=== PATIENT | female | born 1950 | race Two or more races ===

== ENCOUNTER 2018-10-21 17:35 | Emergency (ER) | payer SELFPAY ==
[~2018-10-21] VITALS: Ht 154.9 cm; Wt 56.2 kg
[2018-10-21 18:11] VITALS: BP 150/90
[2018-10-21 19:00] LABS: BASOPHILS % (AUTO) 0.8 % (0-1); EOSINOPHILS % (AUTO) 0.7 % (0-6); HEMATOCRIT 40.5 % (35.0-45.0); HEMOGLOBIN 13.5 g/dl (12.0-16.0); LYMPHOCYTES # (AUTO) 1.5 X10'3 (1.1-4.8); LYMPHOCYTES % (AUTO) 32.9 % (21-51); MEAN CORPUSCULAR HGB CONC 33.4 g/dL (33.0-36.5); MEAN CORPUSCULAR VOLUME 92.8 FL (78-98); MEAN PLATELET VOLUME 7.2 FL (7.4-10.4); MONOCYTES # (AUTO) 0.5 X10'3 (0-0.9); MONOCYTES % (AUTO) 10.6 % (2-12); NEUTROPHILS # (AUTO) 2.5 X10'3 (1.8-7.7); PLATELET COUNT 255 X10'3 (140-440); RED BLOOD COUNT 4.36 X10'6 (4.20-5.60); RED CELL DISTRIBUTION WIDTH 13.4 % (11.5-14.5); WHITE BLOOD COUNT 4.6 X10'3 (4.5-11.0)
[2018-10-21 19:15] LABS: ALANINE AMINOTRANSFERASE 24 U/L (12-78); ALBUMIN 4.2 G/DL (3.4-5.0); ALBUMIN/GLOBULIN RATIO 1.3 (1.1-1.5); ALKALINE PHOSPHATASE 82 IU/L (46-116); ANION GAP 8 (8-16); ASPARTATE AMINO TRANSFERASE 22 U/L (10-37); BILIRUBIN,TOTAL 0.4 MG/DL (0.1-1.0); BLOOD UREA NITROGEN 13 MG/DL (7-18); BUN/CREATININE RATIO 17.8 (6.6-38.0); CHLORIDE 99 MMOL/L (99-107); CREATININE 0.73 MG/DL (0.40-0.90); GLUCOSE 98 MG/DL (70-104); POTASSIUM 3.9 MMOL/L (3.5-5.1); SODIUM 137 MMOL/L (135-145); TOTAL CARBON DIOXIDE 30.3 MMOL/L (24-32); TOTAL PROTEIN 7.4 G/DL (6.4-8.2); eGFR 80 ML/MIN
[2018-10-21 20:14] LABS: CLARITY,URINE CLEAR (Clear); COLOR,URINE YELLOW (Yellow); GLUCOSE, URINE NEGATIVE (Neg); KETONES,URINE NEGATIVE (Neg); LEUKOCYTE ESTERASE ,URINE SMALL (Neg); NITRITES, URINE NEGATIVE (Neg); OCCULT BLOOD,URINE NEGATIVE (Neg); PROTEIN,URINE NEGATIVE (Neg); UROBILINOGEN,URINE 0.2 E.U/dL (0.2-1.0)
[2018-10-21 20:15] LABS: UA COLLECTION TYPE CLN CATCH MIDSTREAM
[2018-10-21 20:32] LABS: BACTERIA,URINE FEW /HPF (Neg); MUCUS STRANDS NONE SEEN /LPF (Neg); RBC,URINE 0-2 /HPF (0-2); SQUAMOUS EPITHELIAL CELL,UR FEW /LPF (FEW); WBC,URINE 0-4 /HPF (0-4)
[2018-10-21] MEDS ORDERED: bisacodyl 5mg tablet.DR PO ONE (20:50)
[2018-10-21] MEDS ORDERED: dicyclomine 10 MG capsule PO ONE (20:55)
[2018-10-21] MEDS ORDERED: acetaminophen 325mg tablet PO ONE (20:55)
[2018-10-21] MEDS ORDERED: MAGN296S50 PO (21:57)
[2018-10-21] MEDS ORDERED: POLY119P2 PO (21:57)
[2018-10-21] MEDS ORDERED: GOLYS PO (21:57)
[2018-10-21] MEDS ORDERED: BISA-155 PO (21:57)
--- NOTE | 2018-10-21 22:17 | NUR ---
PT REFUSED ENEMA
== END 2018-10-21 22:19 | disposition home or self-care (01) ==
LOC: ER 17:37
DX: K59.00 Constipation, unspecified (principal); Z79.899 Other long term (current) drug therapy
CPT/HCPCS: 36415; 74018; 80053; 81001; 85025; 85610; 87088; 99284

== ENCOUNTER 2020-10-05 13:42 | Emergency (ER) | payer MEDICARE, OTHER ==
[~2020-10-05] VITALS: Ht 157.5 cm; Wt 63.2 kg
[~2020-10-05 13:42] MED LIST: BISA-155 PO; GOLYS PO; MAGN296S70 PO; POLY119P2 PO
[2020-10-05 13:52] VITALS: BP 122/67
[2020-10-05 14:41] LABS: CLARITY,URINE CLEAR (Clear); COLOR,URINE YELLOW (Yellow); GLUCOSE, URINE NEGATIVE (Neg); KETONES,URINE NEGATIVE (Neg); LEUKOCYTE ESTERASE ,URINE TRACE (Neg); NITRITES, URINE NEGATIVE (Neg); OCCULT BLOOD,URINE NEGATIVE (Neg); PH,URINE 6.5 (4.8-8.0); PROTEIN,URINE NEGATIVE (Neg); UROBILINOGEN,URINE 0.2 E.U/dL (0.2-1.0)
[2020-10-05 14:45] LABS: UA COLLECTION TYPE CLN CATCH MIDSTREAM
[2020-10-05 14:50] LABS: BACTERIA,URINE FEW /HPF (Neg); MUCUS STRANDS NONE SEEN /LPF (Neg); RBC,URINE NONE SEEN /HPF (0-2); SQUAMOUS EPITHELIAL CELL,UR FEW /LPF (FEW)
[2020-10-06] MEDS ORDERED: NITR100C6 PO (11:39)
[2020-10-06] MEDS ORDERED: PHEN-824 PO (11:39)
== END 2020-10-06 02:23 | disposition left against medical advice (07) ==
LOC: ER 13:43
DX: R33.9 Retention of urine, unspecified (principal); Z53.21 Procedure and treatment not carried out due to patient leaving prior to being seen by health care provider
CPT/HCPCS: 81001; 87088

== ENCOUNTER 2020-10-06 06:33 | Emergency (ER) | payer OTHER ==
[~2020-10-06] VITALS: Ht 91.4 cm; Wt 59.7 kg
[2020-10-06 07:41] VITALS: BP 141/75
[2020-10-06 11:18] LABS: CLARITY,URINE CLEAR (Clear); COLOR,URINE YELLOW (Yellow); GLUCOSE, URINE NEGATIVE (Neg); KETONES,URINE NEGATIVE (Neg); LEUKOCYTE ESTERASE ,URINE SMALL (Neg); NITRITES, URINE NEGATIVE (Neg); OCCULT BLOOD,URINE NEGATIVE (Neg); PH,URINE 6.5 (4.8-8.0); PROTEIN,URINE NEGATIVE (Neg); UROBILINOGEN,URINE 0.2 E.U/dL (0.2-1.0)
[2020-10-06 11:19] LABS: UA COLLECTION TYPE CLN CATCH MIDSTREAM
[2020-10-06 11:24] LABS: SQUAMOUS EPITHELIAL CELL,UR FEW /LPF (FEW)
[2020-10-06 11:26] LABS: BACTERIA,URINE FEW /HPF (Neg); RBC,URINE NONE SEEN /HPF (0-2); WBC,URINE 0-4 /HPF (0-4)
[2020-10-06] MEDS ORDERED: NITR100C6 PO (11:39)
[2020-10-06] MEDS ORDERED: PHEN-824 PO (11:39)
== END 2020-10-06 11:45 | disposition home or self-care (01) ==
LOC: ER 06:34
DX: N39.0 Urinary tract infection, site not specified (principal); R30.9 Painful micturition, unspecified; R33.9 Retention of urine, unspecified; Z79.899 Other long term (current) drug therapy
CPT/HCPCS: 81001; 87088; 99283

== ENCOUNTER 2020-10-08 14:20 | Emergency (ER) | payer MEDICARE, OTHER ==
[~2020-10-08] VITALS: Ht 160 cm; Wt 61.4 kg
[~2020-10-08 14:20] MED LIST changes: +NITR100C6 PO; +PHEN-824 PO
[2020-10-08 19:13] LABS: BASOPHILS # (AUTO) 0.1 X10'3 (0-0.2); BASOPHILS % (AUTO) 1.1 % (0-1); EOSINOPHILS % (AUTO) 0.6 % (0-6); HEMATOCRIT 38.4 % (35.0-45.0); HEMOGLOBIN 13.1 g/dl (12.0-16.0); LYMPHOCYTES # (AUTO) 1.8 X10'3 (1.1-4.8); LYMPHOCYTES % (AUTO) 32.2 % (21-51); MEAN CORPUSCULAR HEMOGLOBIN 30.9 PG (27.0-31.0); MEAN CORPUSCULAR HGB CONC 34.2 g/dL (33.0-36.5); MEAN CORPUSCULAR VOLUME 90.4 FL (78-98); MEAN PLATELET VOLUME 6.7 FL (7.4-10.4); MONOCYTES # (AUTO) 0.6 X10'3 (0-0.9); MONOCYTES % (AUTO) 11.3 % (2-12); NEUTROPHILS # (AUTO) 3.1 X10'3 (1.8-7.7); NEUTROPHILS % (AUTO) 54.8 % (42-75); PLATELET COUNT 277 X10'3 (140-440); RED BLOOD COUNT 4.25 X10'6 (4.20-5.60); RED CELL DISTRIBUTION WIDTH 12.5 % (11.5-14.5); WHITE BLOOD COUNT 5.6 X10'3 (4.5-11.0)
[2020-10-08 19:19] LABS: CLARITY,URINE CLEAR (Clear); COLOR,URINE YELLOW (Yellow); GLUCOSE, URINE NEGATIVE (Neg); KETONES,URINE NEGATIVE (Neg); LEUKOCYTE ESTERASE ,URINE TRACE (Neg); NITRITES, URINE POSITIVE (Neg); OCCULT BLOOD,URINE NEGATIVE (Neg); PROTEIN,URINE NEGATIVE (Neg); UROBILINOGEN,URINE 0.2 E.U/dL (0.2-1.0)
[2020-10-08 19:23] LABS: ALANINE AMINOTRANSFERASE 31 U/L (12-78); ALBUMIN 4.5 G/DL (3.4-5.0); ALBUMIN/GLOBULIN RATIO 1.5 (1.1-1.5); ALKALINE PHOSPHATASE 94 IU/L (46-116); ANION GAP 10 (8-16); ASPARTATE AMINO TRANSFERASE 21 U/L (10-37); BILIRUBIN,TOTAL 0.3 MG/DL (0.1-1.0); BLOOD UREA NITROGEN 7 MG/DL (7-18); BUN/CREATININE RATIO 9.6 (6.6-38.0); CALCIUM 8.8 MG/DL (8.5-10.1); CHLORIDE 100 MMOL/L (99-107); CREATININE 0.73 MG/DL (0.40-0.90); GLUCOSE 102 MG/DL (70-104); POTASSIUM 3.5 MMOL/L (3.5-5.1); SODIUM 141 MMOL/L (135-145); TOTAL CARBON DIOXIDE 30.8 MMOL/L (24-32); TOTAL PROTEIN 7.5 G/DL (6.4-8.2); eGFR 79 ML/MIN
[2020-10-08 19:24] LABS: UA COLLECTION TYPE CLN CATCH MIDSTREAM
[2020-10-08 19:37] LABS: WBC,URINE 0-4 /HPF (0-4)
[2020-10-08 19:38] LABS: BACTERIA,URINE NONE SEEN /HPF (Neg); RBC,URINE NONE SEEN /HPF (0-2); SQUAMOUS EPITHELIAL CELL,UR NONE SEEN /LPF (FEW)
[2020-10-08] MEDS ORDERED: ketorolac trometh inj. 60 MG/2 ML VIAL IM ONE (19:50)
[2020-10-08] MEDS ORDERED: ketorolac trometh. 30mg/ml inj. IM ONE (19:50)
--- NOTE | 2020-10-08 20:00 | NUR ---
CALLED [facility] FOR PT, ETA 30 MIN, 20:30
[2020-10-08 20:22] VITALS: BP 155/78
== END 2020-10-08 20:24 | disposition home or self-care (01) ==
LOC: ER 14:21
DX: R30.0 Dysuria (principal); R33.9 Retention of urine, unspecified; R10.30 Lower abdominal pain, unspecified; M54.6 Pain in thoracic spine; Z87.440 Personal history of urinary (tract) infections; Z79.899 Other long term (current) drug therapy
CPT/HCPCS: 36415; 80053; 81001; 85025; 87088; 96372; 99284; J1885; 99283